=== PATIENT | female | born 2000 ===

== ENCOUNTER 2025-08-02 17:22 | Emergency (ER) | payer BC ==
[~2025-08-02] VITALS: Ht 157.5 cm; Wt 59.0 kg
[2025-08-02 17:27] VITALS: BP 103/61
[2025-08-02] MEDS ORDERED: FLUORESCEIN SODIUM 1 MG STRIP ONE (17:36)
[2025-08-02] MEDS ORDERED: PROPARACAINE 0.5% OPHT DROP 15 ML BOTTLE ONE (17:37)
[2025-08-02] MEDS: PROPARACAINE 0.5% OPHT DROP 15 ML BOTTLE OP ONE (17:43)
[2025-08-02] MEDS: FLUORESCEIN SODIUM 1 MG STRIP OP ONE (17:43)
[2025-08-02] MEDS ORDERED: CIPR2.5D14 RIGHTEYE (17:48)
[2025-08-02 18:03] VITALS: BP 106/64; O2SAT 98
== END 2025-08-02 17:56 | disposition home or self-care (01) ==
LOC: ER 17:43
DX: S05.01XA Injury of conjunctiva and corneal abrasion without foreign body, right eye, initial encounter (principal); X58.XXXA Exposure to other specified factors, initial encounter; Y93.89 Activity, other specified; Y92.89 Other specified places as the place of occurrence of the external cause; Y99.8 Other external cause status
CPT/HCPCS: A4606; A4663